=== PATIENT | male | born 1990 | race Caucasian/White ===

== ENCOUNTER 2018-02-10 11:22 | Emergency (ER) | payer MEDICAID ==
[~2018-02-10] VITALS: Ht 190.5 cm; Wt 100.0 kg
[2018-02-10 11:43] VITALS: BP 138/84
[2018-02-10] MEDS ORDERED: INDOMETHACIN 50MG CAPSULE PO ONE (13:30)
[2018-02-10] MEDS ORDERED: COLCHICINE 0.6MG TABLET PO ONE (13:30)
== END 2018-02-10 13:48 | disposition home or self-care (01) ==
LOC: ER 11:22
DX: M10.9 Gout, unspecified (principal); Z76.0 Encounter for issue of repeat prescription; F17.200 Nicotine dependence, unspecified, uncomplicated; F12.10 Cannabis abuse, uncomplicated; R03.0 Elevated blood-pressure reading, without diagnosis of hypertension; Z98.890 Other specified postprocedural states
CPT/HCPCS: 99283

== ENCOUNTER 2019-03-08 08:27 | Emergency (ER) | payer BC, MEDICAID ==
[~2019-03-08] VITALS: Ht 190.5 cm; Wt 107.0 kg
[2019-03-08] MEDS ORDERED: KETOROLAC 60MG/2ML VIAL IM ONE (11:00)
[2019-03-08] MEDS ORDERED: ACETAMINOPHEN 500MG TABLET PO ONE (11:00)
[2019-03-08 12:25] VITALS: BP 120/90
== END 2019-03-08 12:26 | disposition home or self-care (01) ==
LOC: ER 08:47
DX: M54.5 Low back pain (principal); M10.9 Gout, unspecified; F12.10 Cannabis abuse, uncomplicated; Z87.891 Personal history of nicotine dependence
CPT/HCPCS: 96372; 99283; J1885

== ENCOUNTER 2019-04-01 08:16 | Emergency (ER) | payer BC ==
[~2019-04-01] VITALS: Ht 190.5 cm; Wt 75.0 kg
[2019-04-01 08:42] VITALS: BP 138/90
== END 2019-04-01 11:03 | disposition home or self-care (01) ==
LOC: ER 08:16
DX: M10.9 Gout, unspecified (principal); F12.10 Cannabis abuse, uncomplicated
CPT/HCPCS: 99283

== ENCOUNTER 2019-12-13 12:11 | Emergency (ER) | payer BC ==
[~2019-12-13] VITALS: Ht 190.5 cm; Wt 106.5 kg
[2019-12-13 12:15] VITALS: BP 129/72
[2019-12-13] MEDS ORDERED: KETOROLAC 60MG/2ML VIAL IM ONE (13:45)
== END 2019-12-13 14:12 | disposition home or self-care (01) ==
LOC: ER 14:12
DX: M10.9 Gout, unspecified (principal); E78.00 Pure hypercholesterolemia, unspecified; F12.10 Cannabis abuse, uncomplicated; Z98.890 Other specified postprocedural states
CPT/HCPCS: 96372; 99283; J1885

== ENCOUNTER 2020-01-08 09:14 | Emergency (ER) | payer BC ==
[~2020-01-08] VITALS: Ht 190.5 cm; Wt 104.0 kg
[2020-01-08] MEDS ORDERED: KETOROLAC 60MG/2ML VIAL IM STA (09:38)
[2020-01-08] MEDS ORDERED: DEXAMETHASONE 10 MG/ML VIAL IM ONE (09:45)
[2020-01-08 11:22] VITALS: BP 150/89
== END 2020-01-08 10:53 | disposition home or self-care (01) ==
LOC: ER 09:14
DX: M10.061 Idiopathic gout, right knee (principal); F12.10 Cannabis abuse, uncomplicated; E78.00 Pure hypercholesterolemia, unspecified; Z98.890 Other specified postprocedural states
CPT/HCPCS: 96372; 99284; J1100; J1885